=== PATIENT | male | born 1990 | race Caucasian/White ===

== ENCOUNTER 2020-01-08 03:02 | Emergency (ER) | payer OTHER, SELFPAY ==
[2020-01-08 03:03] VITALS: BP 122/91; PULSE 79; RESP 16; TEMP 36.3; O2SAT 95; BMI 24.4
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
[2020-01-08 05:41] VITALS: PULSE 78; RESP 16
== END 2020-01-08 05:42 | disposition home or self-care (01) ==
PROVIDERS: Emergency Provider Emergency Medicine
DX: S63.602A Unspecified sprain of left thumb, initial encounter (principal); S00.12XA Contusion of left eyelid and periocular area, initial encounter; Y04.0XXA Assault by unarmed brawl or fight, initial encounter; Y93.89 Activity, other specified; Y92.9 Unspecified place or not applicable; Y99.0 Civilian activity done for income or pay
CPT/HCPCS: 70450; 73130; 99284